=== PATIENT | female | born 1975 | race African-American/Black ===

== ENCOUNTER 2021-10-17 20:14 | Emergency (ER) | payer BC, MEDICAID ==
[~2021-10-17] VITALS: Ht 154.9 cm; Wt 74.5 kg
[2021-10-17 20:22] VITALS: BP 120/72
== END 2021-10-17 23:31 | disposition left against medical advice (07) ==
LOC: ER 20:14
DX: Z53.21 Procedure and treatment not carried out due to patient leaving prior to being seen by health care provider (principal)